=== PATIENT | female | born 1945 | race Caucasian/White ===

== ENCOUNTER 2023-02-02 20:35 | Emergency (ER) | payer MEDICARE ==
[~2023-02-02] VITALS: Ht 139.7 cm; Wt 63.5 kg
== END 2023-02-03 00:15 | disposition home or self-care (01) ==
LOC: ED 20:35
DX: S00.83XA Contusion of other part of head, initial encounter (principal); S06.0X0A Concussion without loss of consciousness, initial encounter; F17.210 Nicotine dependence, cigarettes, uncomplicated; Z88.5 Allergy status to narcotic agent; W18.09XA Striking against other object with subsequent fall, initial encounter; Y93.01 Activity, walking, marching and hiking; Y92.098 Other place in other non-institutional residence as the place of occurrence of the external cause; Y99.8 Other external cause status

== ENCOUNTER 2025-02-27 19:29 | Emergency (ER) | payer OTHER ==
[~2025-02-27] VITALS: Ht 149.8 cm; Wt 64.2 kg
[2025-02-27] MEDS ORDERED: SODIUM CHLORIDE 0.9% 1,000 ML IV ONE ×2 (19:40→21:40)
[2025-02-27 20:24] LABS: BASO # 0.1 10*3/uL (0.0-0.1); BASO % 0.5 % (0.0-1.0); EOS # 0.2 10*3/uL (0.0-0.4); EOS % 2.0 % (1.0-4.0); MEAN CELL VOLUME 100.7 fl (81.0-99.0); MEAN CORPUSCULAR HGB 32.7 pg (27.0-31.0); MEAN PLATELET VOLUME 8.9 fl (9.6-12.3); MONO # 0.6 10*3/uL (0.1-1.0); MONO % 5.0 % (3.0-9.0); NEUT # 8.8 10*3/uL (2.3-7.9); NEUT % 75.7 % (47.0-73.0); NUCLEATED RED BLOOD CELL 0.0 % (0.0-0.0); NUCLEATED RED BLOOD CELL 0.0 10*3/uL (0.0-0.0); PLATELET COUNT AUTOMATED 264 10*3/uL (130-400); RED CELL DISTRI WIDTH 14.0 % (0-14.5)
[2025-02-27 20:48] LABS: BUN 24 mg/dl (9-23)
[2025-02-27 20:51] LABS: SGPT/ALT < 7 U/L (5-49)
[2025-02-27] MEDS ORDERED: metroNIDAZOLE 500 MG TAB PO ONE (21:40)
[2025-02-27] MEDS ORDERED: VANCOMYCIN HCL 125 MG CAPSULE PO ONE (21:40)
[2025-02-27] MEDS ORDERED: VANCOMYCIN HCL125 MG PO (21:46)
[2025-02-27] MEDS ORDERED: METRONIDAZOLE500 M1 PO (21:46)
== END 2025-02-28 01:35 | disposition home or self-care (01) ==
LOC: ED 19:29
PROVIDERS: Nurse Practitioner Family
DX: A08.8 Other specified intestinal infections (principal); E86.0 Dehydration; E11.9 Type 2 diabetes mellitus without complications; Z88.5 Allergy status to narcotic agent; Z88.8 Allergy status to other drugs, medicaments and biological substances